=== PATIENT | male | born 1950 | race Caucasian/White ===

== ENCOUNTER 2018-07-29 14:16 | Outpatient (CLI) | payer MEDICARE ==
--- NOTE | 2018-07-29 15:37 | RAD ---
LEFT FOOT THREE VIEWS: History: Left foot pain. FINDINGS: Lisfranc joint alignment is anatomic. Plantar arch is maintained. Long lag screw transfixes the tibio talar joint through the level of the talar neck. Moderate osteophytosis throughout the midfoot. No ac helen fracture, dislocation, or aggressive osseous erosions. Small Achilles and plantar heel spurs. IMPRESSION: Post-operative and degenerative changes left foot. No acute osseous abnormalities are demonstrated. POS: PARK
--- NOTE | 2018-07-29 15:46 | RAD ---
LEFT ANKLE THREE VIEWS: History: Pain in the left ankle. FINDINGS/IMPRESSION: There is post op change with screw in the talocalcaneal joint. Plantar and posterior calcaneal spurs are present. The ankle mortise is maintained. No acute fracture, dislocation, or bony destruction is identified. POS: C
== END 2018-07-29 14:17 | disposition home or self-care (01) ==
LOC: BICRAD 14:16
PROVIDERS: ATTEND Podiatrist
DX: M79.672 Pain in left foot (principal); M24.872 Other specific joint derangements of left ankle, not elsewhere classified; M19.072 Primary osteoarthritis, left ankle and foot; M77.32 Calcaneal spur, left foot; Z98.890 Other specified postprocedural states